=== PATIENT | female | born 2005 | race Caucasian/White ===

== ENCOUNTER 2024-05-28 01:33 | Day surgery (SDC) | payer BC, SELFPAY ==
[2024-05-28] VITALS (7 sets, daily range): BP systolic 106–136; BP diastolic 70–88; PULSE 59–98; RESP 16–18; TEMP 36.5–37.1; O2SAT 98–100; BMI 22.3
--- NOTE | 2024-05-28 01:57 | CRLHL7_ITS ---
For Patients: As a result of the Century Cures Act, medical imaging exams and procedure reports are released immediately into your electronic medical record. You may view this report before your referring provider. If you have questions, please contact your health care provider. Indication: Distal amputation, jumped fence and got caught Technique: Three views of the left hand 4th digit Comparison: None Findings/Impression: Amputation of the majority of the 4th digit distal phalanx. A few tiny ossific foci are noted within the remnant soft tissues. The most proximal portion of the distal phalanx appears preserved at its articulation at the DIP. Dictated by Joseph Meyer MD @ 05/28/2024 2:18:01 AM (Electronically Signed)
--- OUTSIDE RECORDS SUMMARY | 2024-05-28 02:19 | XMS_ITS | Clinical Summary ---
Author Organization [place] Address [facility] [place] [address] Care Team Providers Care Cone Classifier Tender Name Role Phone Carmelita León MD Primary Care Provider Allergies No known active allergies Medications * This document contains information received from the source organization and may not represent a complete record from that organization. FLUoxetine (PROZAC) 20 MG capsuleIndicati ons:Suicidal ideations,Socia l anxiety disorder Take 1 capsule (20 mg) by mouth daily 30 capsule 06/19/2021 Active hydrOXYzine (ATARAX) 25 MG tabletIndicatio ns:Anxiety Take 1 tablet (25 mg) by mouth 3 times daily as needed for itching 30 tablet 06/20/2021 Active Active Problems Problem Noted Date Diagnosed Date Suicidal ideations 06/11/2021 Substance use 06/09/2021 Sinus tachycardia 06/07/2021 Episode of unresponsiveness 06/07/2021 Drug overdose, undetermined intent, initial enco unter 06/07/2021 Social History Tobacco Use Types Packs/Day Years Used Date Smoking Tobacco: Never Assessed Adolescent Education Answer Date Record ed Getting School Help Needed Not on file 12/02 Comments No Sex and Gender Information Value Date Recorded Sex Assigned at Not on file Legal Sex Female 4:37 AM TALENT MANAGER Gender Identity Not on file Sexual Orientation Not on file Last Filed Vital Signs Vital Sign Reading Time Taken Comments Blood Pressure 115/81 06/20/2021 8:33 AM CDT Pulse 89 06/20/2021 8:33 AM CDT Temperature 36.5 C (97.7 F) 06/20/2021 8:33 AM CDT Respiratory Rate 16 06/20/2021 8:33 AM CDT Oxygen Saturation 99% 06/20/2021 8:33 AM CDT Inhaled Oxygen Concentration - - Weight 53.6 kg (118 lb 1.6 oz) 06/11/2021 6:30 P M CDT Height 162.6 cm (5' 4) 06/11/2021 6:30 PM CDT Body Mass Index 20.27 06/11/2021 6:30 PM CDT Body Mass Index Percentile 41.74% 06/11/2021 6:3 0 PM CDT Growth Chart: CDC (Girls, 2- 20 Years) Plan of Treatment Health Maintenance Due Date Last Done Comments ADVANCE CARE PLANNING 2004 ANNUAL REVIEW OF HM ORDERS 2004 CHLAMYDIA SCREENING 2004 YEARLY PREVENTIVE VISIT 06/16/2007 HIV SCREENING 06/16/2019 MENINGITIS B IMMUNIZATION (1 of 2 - Standard) 2020 HEPATITIS C SCREENING 2022 COVID-19 Vaccine (1 - season) 2023 INFLUENZA VACCINE (#1) 2023 0, 11/10/2008, 11/10/2008, Additional history exists PHQ-2 (once per calendar year) 2024 DTAP/TDAP/TD IMMUNIZATION (7 - Td or Tdap) 07/25/2025 07/26/2015, 07/04/2009, 09/30/2005, Additional history exists ZOSTER IMMUNIZATION (1 of 2) 2054 HEPATITIS B IMMUNIZATION Completed 005, 2004, 2004 HIB IMMUNIZATION Completed 09/30/2005, , 2004 Pneumococcal Vaccine: Pediatrics (0 to 5 Years) and At-Risk Patients (6 to 49 Years) Aged Out 09/30/2005, 2004, 2004, Additional history exists No longer eligible based on patient's age to complete this topic IPV IMMUNIZATION Completed 07/04/2009, , 2004, Additional history exists VARICELLA IMMUNIZATION Completed 07/04/2009, 2005 MENINGITIS IMMUNIZATION Aged Out 07/26/2015 No l onger eligible based on patient's age to complete this topic HPV IMMUNIZATION Completed 08/22/2019, 08/23/2018 [place] Advance [place]ives For more information, please contact: [phone] * Full Code (Latest Code Status on File) Date Activated Date Inactivated Comments 06/11/2021 7:03 PM 06/20/2021 4:07 PM All basic and advanced life-sustaining interventions are performed as appropriate. BEH admission Question Answer Comments Code status determined by: Other (please salvatore t) * Full Code Date Activated Date Inactivated Comments 06/08/2021 6:21 AM 06/11/2021 5:56 PM All basic an d advanced life-sustaining interventions are performed as appropriate Question Answer Comments Code status determined by: Other (please salvatore t) Care Teams Cone Classifier Tender Relationship Specialty Start [place] Date [place]ón [place] [id number] [place] [address] PCP - General Pediatrics 04/02/21
--- OUTSIDE RECORDS SUMMARY | 2024-05-28 02:19 | XMS_ITS | Encounter Summary ---
Author Organization [place] Address [facility]0 [facility] [place] [address] Care Team Providers Care Etl Consultant Name Role Phone Carmelita León MD Primary Care Provider Chris Marte Unavailable Encounter Details Date Type Department Care Team (Late st Contact Info) Description 04/03/2021 Documentation Only INTERFACED REPORT Unknown, Provider Social History Tobacco Use Types Packs/Day Years Used Date Smoking Tobacco: Never Assessed Comments No Sex and Gender Information Value Date Recorded Sex Assigned at Not on file Legal Sex Female 4:37 AM ASSISTANT NURSE MANAGER Gender Identity Not on file Sexual Orientation Not on file COVID-19 Exposure Response Date Recorded In the last month, have you been in contact with someone who was confirmed or suspected to have Coronavirus / COVID-19? Yes 04/02/2021 4:43 PM ASSISTANT NURSE MANAGER documented as of this encounter Plan of Treatment Not on file documented as of this encounter Visit Diagnoses Not on filedocumented in this encounter Care Teams Etl Consultant Relationship Specialty Start [place] [address] [place] [address] PCP - General Pediatrics 04/02/21 Chris Marte [address] [facility], [address] [place] [address] Behavioral Health Clinician 06/11/21 06/11/21 documented as of this encounter
--- OUTSIDE RECORDS SUMMARY | 2024-05-28 02:19 | XMS_ITS | Clinical Summary ---
Author Organization [facility] Address [address], [place] [address] Care Team Providers Care Floor Covering Printer Assistant Name Role Phone Carmelita León MD Primary Care Provider [phone] Source Comments You are receiving this document as you are listed as the primary care provider,follow-up provider, or the patient has been referred to you for consultation.This is in compliance with the Medicare andUniversity [facility] Centercaid EHR Incentive Program,which states Providers who transition their patient to another setting of careor provider of care or refers their patient to another provider of care shouldprovide summary care record for each transition of care or referral. [facility] Allergies No known active allergies Medications Vitamin D, Ergocalciferol, 1.25 MG (46566 UT) CAPSIndications: Vitamin D deficiency (HRC) Take 1 Capsule (50,000 Units) by mouth once every week. 3 Capsule 07/01/2021 Active FLUoxetine (PROZAC) 20 MG capsuleIndicatio ns:Social anxiety disorder (HRC),Depression , unspecified depression type Take 1 Capsule (20 mg) by mouth daily. 90 Capsule 3 02/16/2024 02/11/20 25 Active Active Problems Problem Noted Date Diagnosed Date Seizure disorder 09/22/2022 Overview (09/22/2022): H/O 2 known seizures, first time 2/2 benadryl overdose, second time possibly stress induced, referred to neuro Social anxiety disorder 07/01/2021 Depression 07/01/2021 Cannabis abuse 07/01/2021 Vitamin D deficiency 07/01/2021 Suicidal ideations 06/11/2021 Substance use 06/09/2021 Drug overdose of undetermined intent 06/07/2021 Sinus tachycardia 06/07/2021 Osteochondroma 09/06/2018 Overview (09/06/2018): Benign osteochondroma of the distal femur 2018 Resolved Problems Problem Noted Date Diagnosed Date Resolved Date Episode of unresponsiveness 06/07/2021 09/22/2022 Immunizations Immunization Administration Dates Next Due 9vHPV (Gardasil 9) 08/22/2019,08/23/2018 Bexsero (Meningococcal Group B Vaccine) 10/01/2023,09/22/2022 [id number]-CziO-KSU (Pediarix) 2004,2004,0 2004 DTaP-IPV (Kinrix, 4-6 yrs) 07/04/2009 DTaP/Hib 09/30/2005 Flu Vac Preserv Free (3+yrs) 11/10/2008,01/06/20 08 Flu Vac Preserv Free (6-35 mo) 7,12/30/2005,01/30/2005,2004 HepA Ped/Adol (1-18 yrs) 12/17/2006,06/16/2006 Hib (PedvaxHIB) 2004,2004 Influenza IIV4 (Quadrivalent ) 0.5mL (83243) 12/14/2019 Influenza, Unspecified Formulation 11/10,01/06/2008,12/17/2006,2005,01/30/2005,2004 MCV4 MENVEO 10 YR.+ (ONE VIAL) 09/22/2022 MCV4 Menveo 2m.+ (two vial) 07/26/2015 MMR 07/04/2009,06/18/2005 Pneumococcal 7, PED 09/30/2005, 5,2004,2004 TDAP (BOOSTRIX) 07/26/2015 Varicella 07/04/2009,06/18/2005 Family History Medical History Relation Name Comments Hypertension Father Migraines Mother No Known Problems Brother No Known Problems Sister Relation Name Status Comments Father Alive Mother Alive Brother Alive Sister Alive Social History Tobacco Use Types Packs/Day Years Used Date Smoking Tobacco: Never Passive Smoke Exposure: Never Smokeless Tobacco: Never Tobacco Cessation:Counseling Given: Not Answered Alcohol Use Standard Drinks/Week Comments Yes 0 (1 standard drink = 0.6 oz pur e alcohol) Not very often. AUDIT-C Answer Date Recorded Frequency of Alcohol Consumption Never 08/23/2018 Average Number of Drinks Not on file 019 Frequency of Binge Drinking Not on file 09/2018 PHQ-2 Answer Date Recorded PHQ-2 Score 0 02/16/2024 Comments No Sex and Gender Information Value Date Recorded Sex Assigned at Not on file Legal Sex Female 9:24 PM CDT Gender Identity Not on file Sexual Orientation Not on file Occupation Industry Job Start Date Job End Date Freshman at [employer] fall Not on file Not on file Not on file Last Filed Vital Signs Vital Sign Reading Time Taken Comments Blood Pressure 132/89 02/16/2024 11:13 AM CARBON FURNACE OPERATOR HELPER Pulse 81 02/16/2024 11:13 AM CARBON FURNACE OPERATOR HELPER Temperature 36.9 C (98.4 F) 04/21/2023 1:35 PM CARBON FURNACE OPERATOR HELPER Respiratory Rate 16 02/16/2024 11:1 3 AM CARBON FURNACE OPERATOR HELPER Oxygen Saturation 99% 04/21/2023 1:3 5 PM CARBON FURNACE OPERATOR HELPER Inhaled Oxygen Concentration - - Weight 58.5 kg (128 lb 14.4 oz) 024 11:13 AM CARBON FURNACE OPERATOR HELPER Height 162.6 cm (5' 4) 02/16/2024 11:1 3 AM CARBON FURNACE OPERATOR HELPER Head Circumference 47 cm 06/16/2006 10 :02 AM CDT C: 47.0cm Head Circumference Percentile 36.77% 10:02 AM CDT Growth Chart: CDC (Girls, 0- 36 Months) Body Mass Index 22.13 02/16/2024 11:13 AM CARBON FURNACE OPERATOR HELPER Plan of Treatment Health Maintenance Due Date Last Done Comments Chlamydia 2004 Hep C Screening (Preventive Services) 2004 HIV Screening (Preventive Services) 2020 Adult Preventive Visit 2022 08/23/2018 COVID-19 Vaccine ( season) 2023 Influenza (#1) 2023 12/14/2019, 10/18, 11/10/2008, Additional history exists DTaP/Tdap/Td (7 - Tdap) 07/25/2025 07/26/19 16, 07/04/2009, 09/30/2005, Additional history exists Zoster/Shingles (1 of 2) 2054 HepB Completed 2004, 10/17, 2004 Hib Completed 09/30/2005, 10/17, 2004 Pneumococcal Aged Out 09/30/2005, 12/17, 2004, Additional history exists No longer eligible based on patient's age to complete this topic HepA Completed 12/17/2006, 06/16/2006 IPV (Polio) Completed 07/04/2009, 12/17, 2004, Additional history exists Varicella Completed 07/04/2009, 06/18/2005 HPV Vaccine Completed 08/22/2019, 08/23/2018 MCV4 Completed 09/22/2022, 07/26/2015 HGB Completed 04/21/2023, 09/2018, 07/04/2009, Additional history exists Meningococcal B Completed 10/01/2023, 09/22/2022 Procedures Procedure Name Priority Date/Time Associated Diagnosis Comments COMPLETE BLOOD COUNT-NO DIFF Routine 04/21/2023 2:18 PM CARBON FURNACE OPERATOR HELPER Acute bronchitis, unspecified organism Persistent cough from Last 3 Months or Most Recently Relevant to Health Maintenance Results * Complete Blood Count-No Diff (04/21/2023 2:18 PM CARBON FURNACE OPERATOR HELPER) WBC 7.0 3.5 - 10.5 x10(9)/L 04/21/2023 2:22 PM CARBON FURNACE OPERATOR HELPER [facility] RBC 4.71 3.90 - 5.03 x10(12)/L 04/21/2023 2:22 PM CARBON FURNACE OPERATOR HELPER [facility] Hemoglobin 14.5 12.0 - 15.5 g/dL 04/21/2023 2:22 PM CARBON FURNACE OPERATOR HELPER [facility] HCT 43.1 34.9 - 44.5 % 04/21/2023 2:22 PM [facility] MCV 91.5 80.0 - 100.0 fL 04/21/2023 2:22 PM [facility] MCH 30.8 27.6 - 33.3 pg 04/21/2023 2:22 PM [facility] MCHC 33.6 31.5 - 35.2 g/dL 04/21/2023 2:22 PM [facility] RDW 12.3 11.9 - 15.5 % 04/21/2023 2:22 PM [facility] Platelets 258 150 - 450 x10(9)/L 04/21/2023 2:22 PM [facility] Blood Venipuncture / Unknown 04/21/2023 2:18 PM CARBON FURNACE OPERATOR HELPER 04/21/2023 2:18 PM CARBON FURNACE OPERATOR HELPER us Vickie Huff PA-C LAB_1 Final Result Performing Organization Address City/State/[facility] Co de Phone Number [facility] [address] [place] [address] from Last 3 Months or Most Recently Relevant to Health Maintenance Insurance [facility] BLUE LINK [employer]UE [employer] BLUE [employer]INK [employer] BLUE LINK Care Teams Floor Covering Printer Assistant Relationship Specialty Start [place]ón [place] [address] [place] [address] PCP - General Pediatric Medicine 06/19/21
--- NOTE | 2024-05-28 02:22 | ED.GENADULT ---
HPI - General Adult General Chief complaint: Extremity Pain/Injury, Upper Stated complaint: Cut off tip of L ring finger Time Seen by Provider: 05/28/24 01:37 History of Present Illness HPI narrative: Pt states, I was jumping over a fence and when I landed on the ground, my finger wasn't there anymore. Pt has her finger wrapped in paper towels . 18-year-old young woman presenting to the emergency department with friends, boyfriend following an injury to her left ring finger. Had been drinking at a bar with friends. Went to jump over a fence and when she landed on on the ground, she noted that her finger was not there anymore. She is experiencing pain. Bleeding has been controlled. She has wrapped her remaining finger in paper towel. The amputated piece has not been yet located. I note abrasion on her left knee apparently this was unrelated to the fence. She is not having any difficulty walking. Related Data Allergies Allergy/AdvReac Type Severity Reaction Status Date / Time No Known Drug Allergies Allergy Verified 05/28/24 01:42 Review of Systems Status of ROS: Reports: 6 or more systems reviewed and unremarkable except as noted in History and below Exam Narrative: Exam Narrative: Pleasant. A little stressed initially. Ultimately much more relaxed and jovial. Holding paper towels onto her left hand. There is slight abrasion to dorsal right 4th and 3rd finger. Most notable though is amputation nearly at the distal interphalangeal joint of the 4th finger. Just distal to the joint. Lightly oozing blood. Light abrasion to the left knee. Skin otherwise with what looks to be self-inflicted scars at the left volar forearm. Is able to flex and extend with good strength at remaining left 4th finger. Const: Vital Signs, click to edit/add: Vital Signs - 24 hr 05/28/24 01:39 Temperature 98.8 F Pulse Rate [Right Pulse Oximeter] 98 Respiratory Rate 18 Pulse Oximetry 98 Oxygen Delivery Me thod Room Air Documenting provider has reviewed patient's vital signs: yes Course Vital Signs Vital signs: Initial Vital Signs Temperature 98.8 F 05/28/24 01:39 Temperature Source Temporal Artery Scan 05/28/24 01:39 Pulse Rate 98 05/28/24 01:39 Pulse Rhythm Regular 05/28/24 01:39 Respiratory Rate 18 05/28/24 01:39 Pulse Oximetry 98 05/28/24 01:39 Oxygen Delivery Method Room Air 05/28/24 01:39 Vital Signs Temperature 98.8 F 05/28/24 01:39 Pulse Rate 98 05/28/24 01:39 Respiratory Rate 18 05/28/24 01:39 Pulse Oximetry 98 05/28/24 01:39 Oxygen Delivery Method Room Air 05/28/24 01:39 Temperature 98.8 F 05/28/24 01:39 Pulse Rate 98 05/28/24 01:39 Respiratory Rate 18 05/28/24 01:39 Pulse Oximetry 98 05/28/24 01:39 Oxygen Delivery Method Room Air 05/28/24 01:39 Medications Administered Medications: Discontinued Medications Generic Name Dose Route Start Last Admin Trade Name Freq PRN Reason Stop Dose Admin Ceftriaxone Sodium 1 gm 05/28/24 03:39 05/28/24 03:56 Ceftriaxone 1 Gm Vial IM 05/28/24 03:40 1 gm ONCE ONE Administration Medical Decision Making MDM Narrative Medical decision making narrative: Will need x-ray to confirm amputation site or comminution. Initially did inject bupivacaine in a digital block achieving very good anesthesia. Soaked in Hibiclens solution and rinsed with normal saline. X-ray of the left hand 4th finger shows distal phalangeal fracture remaining is the most proximal aspect of the distal phalanx Indication: Distal amputation, jumped fence and got caught Technique: Three views of the left hand 4th digit Comparison: None Findings/Impression: Amputation of the majority of the 4th digit distal phalanx. A few tiny ossific foci are noted within the remnant soft tissues. The most proximal portion of the distal phalanx appears preserved at its articulation at the DIP. Dictated by Joseph Meyer MD @ 05/28/2024 2:18:01 AM Discussed these images with Luz Anticipating repair did call to speak with orthopedics probably to see what I might be able to do here in the emergency department. Ultimately decided they would like to go to the OR Luz is in agreement. Did dress the finger with antibiotic ointment and Adaptic and nonstick dressing. Will be discharged home to later morning surgery. Given IM Rocephin before departure. Discharge Plan Discharge Clinical Impression: Amputation, finger, traumatic Patient Disposition: Home w/ Parent or Adult Condition: Stable Instructions: Finger Amputation (ED) Additional Instructions: Please keep your phone charged and on with volume up as you should expect a phone call around 9:00 a.m. or so to return here for surgery on your finger. Do not eat or drink anything at this point until surgery. Hopefully this anesthetic block lasts until then. Also elevate your hand for more comfort. I am prescribing some Percocet from [facility] which you might need postop. Activity Level: No Restrictions Discharge Diet: Regular Follow Up/Referrals: Provider,Not a Local [Primary Care Provider] - Stand Alone Forms: [employer] Info Instructions
[2024-05-28] MEDS: cefTRIAXone 1 GM VIAL IM (03:56)
--- NOTE | 2024-05-28 10:47 | CRLHL7_ITS ---
For Patients: As a result of the Cures Act, medical imaging exams and procedure reports are released immediately into your electronic medical record. You may view this report before your referring provider. If you have questions, please contact your health care provider. INDICATION: Intraop exam. (Sic) No additional clinical history is provided. COMPARISON: None available. TECHNIQUE: Two intraoperative spot images are submitted. No real-time collaboration between the fusion operator and radiology. FINDINGS: As discussed below: IMPRESSION: 1. Amputation of the 4th distal phalanx (laterality is not indicated on the images; the examination description indicates LEFT finger). 2. Total fluoroscopy time is 3.2 seconds. Dictated by Nav Berry MD @ 05/30/2024 9:43:25 AM (Electronically Signed)
[2024-05-28 10:50] LABS: HCG Qualitative Serum* Negative (Negative)
--- NOTE | 2024-05-28 10:56 | PM.ORHP ---
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 She presented to the emergency department early this morning after sustaining a traumatic injury to the tip of her left ring finger. Patient states that after drinking at a bar she tried to climb over a fence and somehow caught her finger. Following the injury, she looked down at her finger and noticed that the tip of the finger was missing. She was subsequently seen in the emergency department early this morning where x-rays revealed an amputation of the left ring finger just distal to the DIP joint. Wound was treated with a soft dressing and patient was discharged to home. This morning, she reports minimal discomfort. No other complaints. Meds Home Medications and Allergies Home Medications ?Medication ?Instructions ?Recorded ?Confirmed ?Type fluoxetine 20 mg capsule 20 mg PO DAILY 05/28/24 05/28/24 History Allergies Allergy/AdvReac Type Severity Reaction Status Date / Time No Known Drug Allergies Allergy Verified 05/28/24 01:42 Ortho Exam Narrative Exam Narrative: General: Alert and oriented in no apparent distress. Musculoskeletal: Examination of the left hand revealed amputation of the ring finger distal to the DIP joint. Skin proximal to the amputation is warm and well perfused with good capillary refill. She is able to fully flex and extend the ring finger PIP and MCP joints. There is a small, superficial abrasion to the volar middle finger. Const Vital Signs, click to edit/add: Vital Signs - 24 hr 05/28/24 01:39 05/28/24 09:25 Temperature 98.8 F 97.8 F Pulse Rate 95 Pulse Rate [Right Pulse Oximeter] 98 Respiratory Rate 18 18 Blood Pressure 136/76 Pulse Oximetry 98 98 Oxygen Delivery Method Room Air Results Labs Labs: Laboratory Results - last 48 hr 05/28/24 09:58 HCG, Qual Negative Diagnostic results Additional Comments: AP and lateral x-rays of the left ring finger performed 05/28/2024 were reviewed. These demonstrate complete amputation of the ring finger distal phalanx approximately 3 mm distal to the D IP joint. Assessment and Plan Assessment and plan (1) Complete traumatic amputation of left ring finger through phalanx: Status: Acute Plan Patient sustained a complete amputation of the ring finger through the proximal aspect of the distal phalanx. Nature of injury was discussed with patient and her mother. Recommendations made for surgery consisting of irrigation, debridement and possible wound closure. Risks and benefits of surgery to include but not limited to infection, pain, hypersensitivity, wound healing complications were discussed, all questions were answered, and informed consent was obtained. Plan is for surgery later this morning with monitored anesthesia care and local anesthesia. Patient has been NPO since 3:15 this morning. Anticipate discharge to home after procedure.
[2024-05-28] MEDS: LIDOCAINE 1 % PF 30 ML 20 ML INJECTION (11:20)
[2024-05-28] MEDS: BUPIVACAINE 0.25% 30 ML INJECTION (11:20)
[2024-05-28] MEDS: CEFAZOLIN 1 GM inj IVP (11:28)
--- NOTE | 2024-05-28 11:38 | P.ORPRC_ITS ---
Procedure Note Date of procedure: 05/28/24 Procedure: PREOPERATIVE DIAGNOSIS: 1. Traumatic left ring finger distal phalanx amputation POSTOPERATIVE DIAGNOSIS: 1. Traumatic left ring finger distal phalanx amputation PROCEDURE: 1. Left ring finger irrigation and debridement with revision amputation and secondary wound closure. SURGEON: Junaid Ceja MD. AERIAL TRAM OPERATOR: Ariel Haley P.A.-C. - An assistant professor of communication was critical for this case to aid in patient positioning, tissue retraction, limb manipulation/positioning, wound closure, and dressing application. ANESTHESIA: Monitored anesthesia care with left ring finger digital nerve block SPECIMENS: None TOURNIQUET: 38 minute at 225 mmHg ESTIMATED BLOOD LOSS: 3 mL COMPLICATIONS: None INDICATIONS: The patient is a pleasant 18-year-old [id number] female who sustained a complete, traumatic amputation to the distal phalanx of her left ring finger early this morning. Recommendations made for surgical intervention consisting of left ring finger irrigation, debridement, and wound closure. Prior to surgery, risks and benefits of the procedure were discussed with patient, all questions were answered, and informed consent was obtained. FINDINGS: Complete traumatic amputation of the ring finger distal phalanx just distal to the DIP joint. Amputation was proximal to the germinal matrix DESCRIPTION OF PROCEDURE: Patient was seen preoperatively and operative site was marked. She was sent brought to the operating room where monitored anesthesia care was administered by anesthesia staff. She was given 1 g IV Ancef preoperatively for prophylaxis. A left ring finger digital nerve block was performed using 1% plain lidocaine and 0.5% plain bupivacaine. The left upper extremity was then prepped and draped in usual sterile fashion. Surgical time-out was performed confirming patient identity, surgical procedure, surgical site. Initial examination of the amputation was performed. The bone of the remnant distal phalanx was easily palpable at the end of the ring finger. Due to prominent bone and initial inability to mobilize soft tissues over the bone, decision was made to proceed with revision amputation through the PIP joint. The left upper extremity was elevated exsanguinated and tourniquet was inflated to 225 mmHg. The amputation site was then irrigated with copious amounts of normal saline. Longitudinal incisions were made medially and laterally at the midline of the distal ring finger extending just distal to the PIP flexion crease. Sharp circumferential dissection of the remnant distal phalanx was performed and extensor and flexor tendons were released from their insertions to the distal phalanx. After circumferential dissection, the remnant distal phalanx bone was removed. This piece measured 3 mm in length. Following this articulation in removal of the remnant distal phalanx, the soft tissues were able be mobilized to allow for closure over the end of the middle phalanx. The wound was again irrigated with normal saline. Digital nerves were sharply cut proximal to the tip of the remnant finger. Digital vessels were cauterized with bipolar electrocautery. Skin edges were sharply debrided to allow for wound closure without redundant remnant tissue. Skin was then closed with a combination of 4-0 nylon simple interrupted and horizontal mattress sutures. Tourniquet was released. Skin at the distal aspect of the finger was noted to be well perfused with good capillary refill. A sterile dressing was applied, and patient was awoken from anesthesia and transferred to the recovery room in stable condition. PLAN: 1. Ice and elevation for pain and swelling. 2. Tylenol and/or ibuprofen as needed for pain control. Percocet as needed for severe pain. 3. May remove dressings in 3 days. 4. Encourage finger range of motion. 5. Follow-up in orthopedic clinic in 10-14 days for wound check and suture removal. 6. Will initiate formal occupational therapy approximately 2 weeks postoperatively.
[2024-05-28] MEDS: BACITRACIN OINTMENT BULK TUBE 1 APPLIC TOPICAL (12:31)
--- NOTE | 2024-05-28 13:09 | P.ANES_ITS ---
Anesthesia Charges Start Date/Time Anesthesia Start Date: 05/28/24 Anesthesia Start Time: 11:14 Stop Date/Time Anesthesia Stop Date: 05/28/24 Anesthesia Stop Time: 12:58 Summary Emergency: PROGRAM ADVISOR Coding CPT Codes CPT Codes: ANESTH LOWER ARM PROCEDURE - 32153 ([id number]) P1 - NORMAL HEALTHY PATIENT, QZ - PROGRAM ADVISOR SVC W/O FIRE INVESTIGATION MANAGER BY Additional Codes: Summary - Emergency: PROGRAM ADVISOR ([id number])
--- NOTE | 2024-05-28 13:09 | W.ANESCHARGE ---
Anesthesia Charges Start Date/Time Anesthesia Start Date: 05/28/24 Anesthesia Start Time: 11:14 Stop Date/Time Anesthesia Stop Date: 05/28/24 Anesthesia Stop Time: 12:58 Summary Emergency: TILE FINISHER Coding CPT Codes CPT Codes: ANESTH LOWER ARM PROCEDURE - 02584 ([id number]) P1 - NORMAL HEALTHY PATIENT, QZ - TILE FINISHER SVC W/O COMPUTER OPERATIONS ANALYST BY Additional Codes: Summary - Emergency: TILE FINISHER ([id number])
--- NOTE | 2024-05-28 15:32 | PC.NURSE ---
Pt VSS. Denies pain and nausea. Tolerating oral intake. Ambulated independently in room. Voiding without problems. Discharge instructions reviewed, no questions or concerns at this time. Pt discharged home via mom at 1500.
== END 2024-05-28 15:00 | disposition home or self-care (01) ==
LOC: ED 04:03 → SS 08:42 → MEDSURG 08:44
PROVIDERS: Family Medicine; Emergency Provider Family Medicine; Visit Provider Orthopaedic Surgery
PROC: 0HQQXZZ Repair Finger Nail, External Approach (ICD-10-PCS; CPT 11760; principal; 2024-05-28 11:00)
DX: S68.615A Complete traumatic transphalangeal amputation of left ring finger, initial encounter (principal); S80.212A Abrasion, left knee, initial encounter; Y93.39 Activity, other involving climbing, rappelling and jumping off; W17.89XA Other fall from one level to another, initial encounter; Y92.89 Other specified places as the place of occurrence of the external cause; W26.8XXA Contact with other sharp object(s), not elsewhere classified, initial encounter
CPT/HCPCS: 26951; 01820; 01830; 36415; 73140; 76000; 81025; 84703; 99140; 99284; 99285; A9270; J0665; J0690; J0696; J1100; J2003; J2250; J2405; J2704; J3490

== ENCOUNTER 2024-07-07 14:45 | Outpatient (RCR) | payer BC, SELFPAY ==
--- NOTE | 2024-06-13 10:59 | OT.OPOE ---
OT Outpatient Ortho Eval OT Outpatient Ortho Eval* Start: 06/13/24 08:49 Freq: Status: Active Protocol: Document 06/13/24 08:50 GAYLE (Rec: 06/13/24 10:54 SHERINKristina [id number]) E-signed By Beatris Torres, OTR/L, CLT OT OP Ortho Eval Details Complexity Complexity Medium Insurance Information Insurance Information Blue Cross/[employer] Insurance Information Comments *Next Ortho f/u apt in 1 month (patient does not have this scheduled yet). Outpatient History/Precautions Current Condition/Medical Diagnosis Referring Provider Dr. Hernesto Ceja Medical Diagnoses S68.615D, Complete traumatic amputation of left ring finger through phalanx, subsequent encounter Treatment Diagnosis M79.645 pain in the left finger of the L Hand R60.0 Localized Edema Date of Onset DATE OF SURGERY: 05/29/2023 Other Precautions From Ortho Note: Sutures removed in ORTHO clinic . She was instructed to keep the area clean. Avoid placing pressure on the finger tip until wound has completely healed. She is instructed on home exercises for finger range of motion, edema control, and desensitization. Other Conditions Cannabis abuse F12.10 - Cannabis abuse, uncomplicated (ICD-10) Vitamin D deficiency E55.9 - Vitamin D deficiency, unspecified (ICD-10) Substance use F19.90 - Other psychoactive substance use, unspecified, uncomplicated (ICD-10) Drug overdose of undetermined intent T50.904A - Poisoning by unspecified drugs, medicaments and biological substances, undetermined, initial encounter (ICD-10) Seizures R56.9 - Unspecified convulsions (ICD-10) Cyst of skin L72.9 - Follicular cyst of the skin and subcutaneous tissue, unspecified (ICD-10) Social anxiety disorder F40.10 - Social phobia, unspecified (ICD-10) Depression F32.A - Depression, unspecified (ICD-10) Medical/Functional History Medical History Reviewed Yes Prior Level of Function/Mobility Indep with all self cares and IADLs Social History 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 Patient is now 16 days post op surgery for left ring finger revision amputation and wound closure. She states she is doing well. She reports minimal pain (2/10 with activity) and has mild localized edema to this finger only (none in the hand). Pain Assessment Pain Pain Yes Pain Comments 2/10 with activity (making a fist) Range of Motion and Strength Hand/Finger/Thumb Range of Motion and Strength Hand/Finger/Thumb Range of Motion and L Hand: Ring Finger Strength She was able to fully flex and extend the ring finger PIP and MCP joints. Hand Pinch/Metal Tube Cutter Strength Hand Pinch/Metal Tube Cutter Strength Hand Pinch/Metal Tube Cutter Strength Left Hand,Right Hand Left Hand Metal Tube Cutter Strength Position 1 in Elbow 60 Flexion (lbs) Metal Tube Cutter Strength Position 2 in Elbow 60 Extension (lbs) Right Hand Metal Tube Cutter Strength Position 1 in Elbow 80 Flexion (lbs) Metal Tube Cutter Strength Position 2 in Elbow 83 Extension (lbs) Comments Comments ring finger to finger, 2 pt on the R hand: 8lb ring finger to finger, 2 pt on the L hand: 5 lbs but painful OT Objective Data Observations/Posture/Limb Appearance Objective Observations L Hand: Ring Finger Musculoskeletal: L hand, ring finger surgical wound is unable to be seen as it is covered with steri strips. The outside has some dried blood on the steri strips but patient did not want therapist to remove/clean and re-strip at this visit. Sensation Sensation Assessment Summary Comments Sensation was intact to light touch throughout the ring finger. Ring finger was warm and well perfused with good capillary refill. OT Problems Problems Problems Decreased Strength,Decreased Dexterity,Pain,Decreased Coordination,Sensory Sensitivity,Lifting,Gripping, Pinching Problems Comments Some hypersensitivity at the L hand ring finger tip but this is presently covered by steri strips. Patient Potential Good Assessment Assessment Assessment 18 year old R hand dominant female is referred to skilled OT from Ortho following: PROCEDURE: Left ring finger I& D, revision partial amputation ; DATE OF SURGERY: 05/29/2023. Patient is now 16 days post op surgery for left ring finger revision amputation and wound closure. She states she is doing well. She reports minimal pain (2/10 with activity) and has mild localized edema to this finger only (none in the hand). PLAN : Therapist to develop a customized HEP for patient to decreased localized edema, increase her AROM (ability to make a strong tight closed fist with the L hand) and decrease pain in order for patient to resume normal every day activities. Occupational Therapy Treatment Plan - OP Potential Rehabilitation Potential Good Barriers Barriers to goal attainment None Noted Set Goals Goals Set with Patient Yes Goals Goals 1. Through skilled therapy treatment, patient will gain knowledge in order to promote healing of injury through the control of inflammation in order to return hand to normal , pain free function. 2. Patient will actively participate in their HEP in order to promote tendon gliding: decrease adhesions and promote strong union of post surgical area so that patient can resume Left hand to normal, pain-free function. 3. Pt will demonstrate pain- free L hand alliance director and pinch strength comparable to the uninvolved side in order to improve functional grasp, hold , reach, and lifting ability needed to complete self-care, leisure tasks, and work activities. Treatment Plan Treatment Plan Evaluation,Edema Control,Joint Mobilization,Manual Therapy, Wound Care/Scar Management, Therapeutic Exercise,Self Care /Home Management,Education Expected Frequency 1-2x Week Expected Duration 8-10 Weeks Home Program Home Program Home Program Initiated Home Program Specifics Access Code: [email or web address] URL: [email or web address] Date: 06/13/2024 Prepared by: Beatris Torres Exercises - Seated Finger DIP AROM - 1 x daily - 7 x weekly - 3 sets - 10 reps - Seated Claw Fist AROM - 1 x daily - 7 x weekly - 3 sets - 10 reps - Seated Isolated Finger PIP Flexion AROM - 1 x daily - 7 x weekly - 3 sets - 10 reps - Resisted Finger Extension and Thumb Abduction - 1 x daily - 7 x weekly - 3 sets - 10 reps - Finger Abduction with Rubber Band - 1 x daily - 7 x weekly - 3 sets - 10 reps - Finger Extension or EDC Glides: Pen Roll From Fist to Hook Fist - 1 x daily - 7 x weekly - 3 sets - 10 reps - [id number] Translation - 1 x daily - 7 x weekly - 3 sets - 10 reps - Seated Finger Adduction and Extension with Towel - 1 x daily - 7 x weekly - 3 sets - 10 reps Certification Certification Statement I Certify That: Therapy Services Provided, Therapy Plan Established, Therapy Plan Reviewed Certification Information Clinic ID # [id number] Initial Certification Date 06/13/24 Recertification Due Date 09/11/24 Provider Signature Required Yes Provider Signature Shows Agreement With POC & Medical Necessity Physician NPI Number Write NPI# Here Physician Comment/Change Comment or Changes Physician Signature & Date Requested Please Sign/Date Here
== END 2024-07-07 15:39 | disposition home or self-care (01) ==
PROVIDERS: Visit Provider Orthopaedic Surgery
DX: S68.615D Complete traumatic transphalangeal amputation of left ring finger, subsequent encounter (principal); Z51.89 Encounter for other specified aftercare
CPT/HCPCS: 97110; 97166; 97535; X5282